=== PATIENT | female | born 1960 ===

== ENCOUNTER 2024-02-24 07:08 | Day surgery (SDC) | payer OTHER ==
[2024-02-19 13:47] VITALS: BP 123/84
[~2024-02-24] VITALS: Ht 165.1 cm; Wt 59.9 kg
[2024-02-24] MEDS ORDERED: POVIDONE-IODINE 118 ML BOTT TOP ONE (09:15)
[2024-02-24] MEDS ORDERED: IBU600 MG PO (10:09)
== END 2024-02-24 14:55 | disposition home or self-care (01) ==
LOC: CIR.AMB 07:08
PROVIDERS: ATTEND Obstetrics & Gynecology Gynecology
DX: N84.0 Polyp of corpus uteri (principal)